=== PATIENT | male | born 1990 | race Caucasian/White ===

== ENCOUNTER → 2023-08-15 07:07 | Outpatient (REF) | payer OTHER, SELFPAY | LOC: HWRAD 07:07 | PROVIDERS: ATTENDING PHYSICIAN Internal Medicine Hematology & Oncology; FAMILY PHYSICIAN Physician Assistant Medical | DX: C40.21 Malignant neoplasm of long bones of right lower limb (principal) | CPT/HCPCS: 71250 ==

== ENCOUNTER → 2024-02-03 13:48 | Outpatient (REF) | payer OTHER, SELFPAY | LOC: MRI 3T 13:48 | PROVIDERS: ATTENDING PHYSICIAN Nurse Practitioner Family | DX: Z85.830 Personal history of malignant neoplasm of bone (principal) | CPT/HCPCS: 73723; A9575 ==

== ENCOUNTER → 2024-02-20 09:58 | Outpatient (REF) | payer OTHER, SELFPAY | LOC: HWRAD 09:58 | PROVIDERS: ATTENDING PHYSICIAN Internal Medicine Hematology & Oncology; FAMILY PHYSICIAN Physician Assistant Medical | DX: C40.21 Malignant neoplasm of long bones of right lower limb (principal) | CPT/HCPCS: 71250 ==

== ENCOUNTER → 2024-09-03 07:55 | Outpatient (REF) | payer OTHER, SELFPAY | LOC: HWRAD 07:55 | PROVIDERS: ATTENDING PHYSICIAN Internal Medicine Hematology & Oncology; FAMILY PHYSICIAN Family Medicine | DX: C40.21 Malignant neoplasm of long bones of right lower limb (principal) | CPT/HCPCS: 71250 ==

== ENCOUNTER → 2025-03-18 07:12 | Outpatient (REF) | payer OTHER, SELFPAY | LOC: HWRAD 07:12 | PROVIDERS: ATTENDING PHYSICIAN Internal Medicine Hematology & Oncology; FAMILY PHYSICIAN Physician Assistant Medical | DX: C40.21 Malignant neoplasm of long bones of right lower limb (principal) | CPT/HCPCS: 71250 ==